=== PATIENT | female | born 1960 | race Two or more races ===

== ENCOUNTER 2017-04-10 07:08 | Outpatient (CLI) | payer OTHER ==
[~2017-04-10 07:08] MED LIST: ANTIVERT25 M1 PO; CATAFLAM50 MG PO; FLEXERIL 10 MG PO; FLEXERIL10 MG PO; LEVAQUIN500 MG PO; LISINOPRIL-HCTZ1 TAB; LISINOPRIL-HCTZ1 TAB PO; LOPRESSOR25 MG; MEDROL4 MG PO; NORVASC10 MG; NORVASC10 MG PO; TRAMADOL HCL-AP1 TAB PO; VOLTAREM 50 MG PO; ZOCOR20 MG PO; ZYRTEC10 MG PO
== END 2017-04-10 07:21 | disposition home or self-care (01) ==
LOC: LAB 07:08
DX: E11.9 Type 2 diabetes mellitus without complications (principal); I10 Essential (primary) hypertension

== ENCOUNTER → 2017-04-24 | Outpatient (CLI) | payer OTHER ==
[~2017-04-24] VITALS: Ht 152.4 cm; Wt 63.5 kg
== END | disposition home or self-care (01) ==
LOC: PPHC 09:21
DX: Z01.89 Encounter for other specified special examinations (principal)

== ENCOUNTER 2017-11-03 14:36 | Outpatient (CLI) | payer OTHER | END 2017-11-03 14:41 | disposition home or self-care (01) | LOC: MAMO-SONO 14:36 | DX: Z12.31 Encounter for screening mammogram for malignant neoplasm of breast (principal); N64.4 Mastodynia ==

== ENCOUNTER → 2017-11-15 07:22 | Outpatient (CLI) | payer OTHER | END | disposition home or self-care (01) | LOC: LAB 07:22 | DX: I10 Essential (primary) hypertension (principal); E78.4 Other hyperlipidemia ==

== ENCOUNTER → 2017-12-08 06:58 | Outpatient (CLI) | payer OTHER | END | disposition home or self-care (01) | LOC: LAB 06:58 | DX: I10 Essential (primary) hypertension (principal); E78.49 Other hyperlipidemia ==

== ENCOUNTER 2018-01-12 16:42 | Emergency (ER) | payer OTHER ==
[~2018-01-12] VITALS: Ht 152.4 cm; Wt 68.9 kg
== END 2018-01-12 18:17 | disposition home or self-care (01) ==
LOC: ER 16:42
DX: M25.561 Pain in right knee (principal)

== ENCOUNTER → 2018-11-07 | Outpatient (CLI) | payer OTHER | END | disposition home or self-care (01) | LOC: MAMO-SONO 11-03 15:00 | DX: Z12.31 Encounter for screening mammogram for malignant neoplasm of breast (principal); Z87.898 Personal history of other specified conditions; Z12.39 Encounter for other screening for malignant neoplasm of breast ==

== ENCOUNTER → 2019-04-04 06:39 | Outpatient (CLI) | payer OTHER | END | disposition home or self-care (01) | LOC: LAB 06:39 | DX: E55.9 Vitamin D deficiency, unspecified (principal); Z00.00 Encounter for general adult medical examination without abnormal findings; E78.2 Mixed hyperlipidemia; N39.0 Urinary tract infection, site not specified; R42 Dizziness and giddiness; I10 Essential (primary) hypertension ==